=== PATIENT | female | born 2000 | race Caucasian/White ===

== ENCOUNTER 2024-10-06 18:17 | Emergency (ER) | payer MEDICARE, MEDICAID, SELFPAY ==
[2024-10-06] VITALS (47 sets, daily range): BP systolic 102–137; BP diastolic 62–94; PULSE 97–116; RESP 7–64; TEMP 36.6; O2SAT 92–99; BMI 25.0
[2024-10-06] MEDS: IPRAT-ALBUT 0.5-2.5 MG/3 ML NEB 1 NEB IH (18:17)
--- NOTE | 2024-10-06 18:27 | ED.GENADULT ---
HPI - General Adult General Chief complaint: Shortness of Breath/Dyspnea Stated complaint: difficulty breathing Time Seen by Provider: 10/06/24 18:18 History of Present Illness HPI narrative: This 23-year-old female comes in with a significant other because of shortness of breath. She is hyperventilating and has some stridorous breathing but seems to be moving air okay. She arrives with oximetry around 90-92% on room air. 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 She is typically on oxygen at 2-4 L per minute and states that she ran out of oxygen about a half an hour ago. She did have an IV dose of dexamethasone about a week ago that helped her for a while. She does appear rather anxious and is dramatic regarding her symptoms. There is no report of recent infection or fever. Related Data Home Medications ?Medication ?Instructions ?Recorded ?Confirmed aspirin 81 mg chewable tablet 81 mg PO DAILY 10/06/24 10/06/24 (Aspirin Childrens) digoxin 250 mcg (0.25 mg) tablet 250 mcg PO DAILY 10/06/24 10/06/24 escitalopram oxalate 20 mg tablet 20 mg PO DAILY 10/06/24 10/06/24 losartan 25 mg tablet 25 mg PO DAILY 10/06/24 10/06/24 Allergies Allergy/AdvReac Type Severity Reaction Status Date / Time amoxicillin Allergy Unknown Verified 10/06/24 18:34 cyclobenzaprine Allergy Unknown Verified 10/06/24 18:34 Review of Systems Status of ROS: Reports: 10 or more systems reviewed and unremarkable except as noted in History and below Narrative: Constitutional: No fevers, no weight gain or loss. Eyes: No discharge. No vision changes. HENT: No congestion, no sore throat, no ear pain. Cardiovascular: No chest pain, no palpitations. Respiratory: Shortness of breath as described above. Gastrointestinal: No abdominal pain, no vomiting, no diarrhea. Genitourinary: No dysuria, no hematuria. Musculoskeletal: Normal range of motion. Skin: No rashes, no pruritis. Neurological: No dizziness, weakness, sensory change, speech change. Endo/Heme/Allergies: No bruising or bleeding. No polydipsia. Pysch: no suicidality, no anxiety, no insomnia. All other systems reviewed and are negative. Exam Narrative: Exam Narrative: Constitutional: Well-developed, well-nourished, no acute distress. HEENT: Normocephalic, atraumatic. Neck: Normal range of motion. Nontender. Supple. Heart: Regular. No murmurs. Normal rate. Intact distal pulses. Lungs: Stridorous upper airway breathing that seems to be more self-induced. No chest discomfort. No wheezes, rhonchi, or rales. Tachypnea. Abdomen: Normal bowel sounds. Nontender. No rebound tenderness. Genitalia: Deferred. Back: No midline tenderness. Normal range of motion. Extremities: Normal range of motion. No injury. Skin: Intact. No rash. Warm. No erythema or pallor. Neurologic: No altered sensation. No weakness. Alert and oriented. Nursing notes and vitals signs are reviewed. Const: Vital Signs, click to edit/add: Vital Signs - 24 hr 10/06/24 18:21 10/06/24 18:23 10/06/24 18:27 Temperature 97.8 F Pulse Rate 116 H 116 H Pulse Rate [Left P ulse Oximeter] 113 H Respiratory Rate 64 H 40 H Blood Pressure 117/80 Blood Pressure [Le ft Upper Arm] 117/80 Pulse Oximetry 96 95 93 Oxygen Delivery Me thod Room Air Fraction of Inspir ed Oxygen 10/06/24 18:27 10/06/24 18:30 10/06/24 18:31 Temperature Pulse Rate 110 H 112 H 112 H Pulse Rate [Left P ulse Oximeter] Respiratory Rate 61 H 39 H 42 H Blood Pressure 123/76 129/82 Blood Pressure [Le ft Upper Arm] Pulse Oximetry 95 99 98 Oxygen Delivery Me thod CPAP CPAP Fraction of Inspir ed Oxygen 30 30 10/06/24 18:45 10/06/24 18:46 10/06/24 18:55 Temperature Pulse Rate 108 H 106 H Pulse Rate [Left P ulse Oximeter] Respiratory Rate 14 7 L Blood Pressure 121/80 Blood Pressure [Le ft Upper Arm] Pulse Oximetry 94 96 Oxygen Delivery Me thod CPAP CPAP Fraction of Inspir ed Oxygen 30 30 0.30 10/06/24 19:00 10/06/24 19:01 10/06/24 19:15 Temperature Pulse Rate 100 106 H 102 H Pulse Rate [Left P ulse Oximeter] Respiratory Rate 12 13 16 Blood Pressure 123/94 H Blood Pressure [Le ft Upper Arm] Pulse Oximetry 93 94 95 Oxygen Delivery Me thod CPAP CPAP CPAP Fraction of Inspir ed Oxygen 30 30 30 10/06/24 19:16 Temperature Pulse Rate 103 H Pulse Rate [Left P ulse Oximeter] Respiratory Rate 26 H Blood Pressure 104/75 Blood Pressure [Le ft Upper Arm] Pulse Oximetry 98 Oxygen Delivery Me thod CPAP Fraction of Inspir ed Oxygen 30 Course Vital Signs Vital signs: Initial Vital Signs Pulse Rate 116 H 10/06/24 18:21 Pulse Oximetry 96 10/06/24 18:21 Vital Signs Pulse Rate 116 H 10/06/24 18:21 Pulse Oximetry 96 10/06/24 18:21 Temperature 97.8 F 10/06/24 18:27 Pulse Rate 103 H 10/06/24 19:16 Respiratory Rate 26 H 10/06/24 19:16 Blood Pressure 104/75 10/06/24 19:16 Pulse Oximetry 98 10/06/24 19:16 Oxygen Delivery Method CPAP 10/06/24 19:16 Fraction of Inspired Oxygen 30 10/06/24 19:16 Medications Administered Medications: Discontinued Medications Generic Name Dose Route Start Last Admin Trade Name Freq PRN Reason Stop Dose Admin Albuterol/Ipratropium 1 neb 10/06/24 18:26 10/06/24 18:17 Iprat-Albut 0.5-2.5 Mg/3 Ml Neb IH 10/06/24 18:27 1 neb ONCE ONE Administration Dexamethasone 10 mg 10/06/24 18:26 10/06/24 18:35 Dexamethasone 4 Mg/Ml Vial IV 10/06/24 18:27 10 mg ONCE ONE Administration Lorazepam 0.5 mg 10/06/24 18:33 10/06/24 19:16 Lorazepam 0.5 Mg Tablet PO 10/06/24 18:34 0.5 mg ONCE ONE Administration Ondansetron HCl 4 mg 10/06/24 18:43 10/06/24 18:45 Ondansetron 2 Mg/Ml Inj IVP 10/06/24 18:44 4 mg ONCE ONE Administration Medical Decision Making MDM Narrative Medical decision making narrative: This patient comes in with hyperventilating and lots of anxiety regarding her breathing. It seems that her lung sounds are primarily coming from her neck and larynx. Her lungs actually sound rather clear and she is moving air okay otherwise. The patient did receive BiPAP initially along with an IV dose of dexamethasone 10 mg. She was maintaining sufficient oximetry prior to this with nasal cannula. She also received a DuoNeb prior to the BiPAP. She began to do much better rather quickly on BiPAP and was converted to CPAP which she normally uses at night. The patient did also receive an oral dose of Ativan 0.5 mg. She is doing much better and feels okay to return home. She states that she has an oxygen concentrator and will be able to be discharged with that resource available. Discharge Plan Discharge Clinical Impression: Asthma with acute exacerbation Patient Disposition: Home w/ Parent or Adult Condition: Improved Additional Instructions: Continue current plans. Follow up with primary physicians as needed or return if worsening. Prescriptions: No Action digoxin 250 mcg (0.25 mg) tablet 250 mcg PO DAILY losartan 25 mg tablet 25 mg PO DAILY escitalopram oxalate 20 mg tablet 20 mg PO DAILY aspirin [Aspirin Childrens] 81 mg tablet,chewable 81 mg PO DAILY Stand Alone Forms: [employer] Info Instructions
[2024-10-06] MEDS: ONDANSETRON 2 MG/ML inj 4 MG IVP (18:45)
[2024-10-06] MEDS: ALBUTEROL SULFATE 2.5 MG/3 ML VIAL.NEB NEB (20:50)
[2024-10-07] VITALS (44 sets, daily range): BP systolic 105; BP diastolic 65; PULSE 79–82; RESP 5–36; O2SAT 90–97
[2024-10-07] MEDS: TIZANIDINE HCL 4 MG TABLET 2 MG PO (01:10)
[2024-10-07] MEDS: ALBUTEROL SULFATE 2.5 MG/3 ML VIAL.NEB NEB (08:35)
--- NOTE | 2024-10-07 09:31 | ED.GENADULT ---
HPI - General Adult General Chief complaint: Shortness of Breath/Dyspnea Stated complaint: difficulty breathing Time Seen by Provider: 10/06/24 18:18 Related Data Home Medications ?Medication ?Instructions ?Recorded ?Confirmed aspirin 81 mg chewable tablet 81 mg PO DAILY 10/06/24 10/06/24 (Aspirin Childrens) digoxin 250 mcg (0.25 mg) tablet 250 mcg PO DAILY 10/06/24 10/06/24 escitalopram oxalate 20 mg tablet 20 mg PO DAILY 10/06/24 10/06/24 losartan 25 mg tablet 25 mg PO DAILY 10/06/24 10/06/24 Allergies Allergy/AdvReac Type Severity Reaction Status Date / Time amoxicillin Allergy Unknown Verified 10/07/24 01:09 cyclobenzaprine Allergy Unknown Verified 10/07/24 01:09 Review of Systems Status of ROS: Reports: 10 or more systems reviewed and unremarkable except as noted in History and below [facility] 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 EYES: No scleral icterus. LYMPH: No supraclavicular or cervical lymphadenopathy. SKIN: Visible skin seen during exam normal or with benign process only. EXT: No dependent lower extremity pedal edema. HEART: Regular rate and rhythm with no murmurs, rubs, or gallops. LUNGS: Clear to auscultation bilaterally with no crackles or wheezes. ABD: Soft, non tender, non distended. PSYCH: Good eye contact, speech is not pressured. Neurologic cranial nerves 2-12 grossly intact no focal defects. Const: Vital Signs, click to edit/add: Vital Signs - 24 hr 10/06/24 18:21 10/06/24 18:23 10/06/24 18:27 Temperature 97.8 F Pulse Rate 116 H 116 H Pulse Rate [Left P ulse Oximeter] 113 H Respiratory Rate 64 H 40 H Blood Pressure 117/80 Blood Pressure [Le ft Upper Arm] 117/80 Pulse Oximetry 96 95 93 Oxygen Delivery Me thod Room Air Oxygen Flow Rate Fraction of Inspir ed Oxygen 10/06/24 18:27 10/06/24 18:30 10/06/24 18:31 Temperature Pulse Rate 110 H 112 H 112 H Pulse Rate [Left P ulse Oximeter] Respiratory Rate 61 H 39 H 42 H Blood Pressure 123/76 129/82 Blood Pressure [Le ft Upper Arm] Pulse Oximetry 95 99 98 Oxygen Delivery Me thod BiPAP BiPAP Oxygen Flow Rate Fraction of Inspir ed Oxygen 30 30 10/06/24 18:45 10/06/24 18:46 10/06/24 18:55 Temperature Pulse Rate 108 H 106 H Pulse Rate [Left P ulse Oximeter] Respiratory Rate 14 7 L Blood Pressure 121/80 Blood Pressure [Le ft Upper Arm] Pulse Oximetry 94 96 Oxygen Delivery Me thod BiPAP BiPAP Oxygen Flow Rate Fraction of Inspir ed Oxygen 30 30 0.30 10/06/24 19:00 10/06/24 19:01 10/06/24 19:15 Temperature Pulse Rate 100 106 H 102 H Pulse Rate [Left P ulse Oximeter] Respiratory Rate 12 13 16 Blood Pressure 123/94 H Blood Pressure [Le ft Upper Arm] Pulse Oximetry 93 94 95 Oxygen Delivery Me thod BiPAP BiPAP BiPAP Oxygen Flow Rate Fraction of Inspir ed Oxygen 30 30 30 10/06/24 19:16 10/06/24 19:17 10/06/24 19:30 Temperature Pulse Rate 103 H 101 H 103 H Pulse Rate [Left P ulse Oximeter] Respiratory Rate 26 H 22 15 Blood Pressure 104/75 Blood Pressure [Le ft Upper Arm] Pulse Oximetry 98 96 94 Oxygen Delivery Me thod BiPAP CPAP CPAP Oxygen Flow Rate Fraction of Inspir ed Oxygen 30 30 30 10/06/24 19:31 10/06/24 19:32 10/06/24 19:45 Temperature Pulse Rate 106 H 104 H 104 H Pulse Rate [Left P ulse Oximeter] Respiratory Rate 11 L 14 15 Blood Pressure 112/81 Blood Pressure [Le ft Upper Arm] Pulse Oximetry 95 94 94 Oxygen Delivery Me thod CPAP CPAP CPAP Oxygen Flow Rate Fraction of Inspir ed Oxygen 30 30 30 10/06/24 19:46 10/06/24 20:00 10/06/24 20:01 Temperature Pulse Rate 106 H 102 H 103 H Pulse Rate [Left P ulse Oximeter] Respiratory Rate 12 20 21 Blood Pressure 116/83 110/86 Blood Pressure [Le ft Upper Arm] Pulse Oximetry 94 96 97 Oxygen Delivery Me thod CPAP CPAP CPAP Oxygen Flow Rate Fraction of Inspir ed Oxygen 30 30 30 10/06/24 20:15 10/06/24 20:16 10/06/24 20:30 Temperature Pulse Rate 97 101 H 102 H Pulse Rate [Left P ulse Oximeter] Respiratory Rate 13 Blood Pressure 115/73 Blood Pressure [Le ft Upper Arm] Pulse Oximetry 96 96 97 Oxygen Delivery Me thod CPAP CPAP CPAP Oxygen Flow Rate Fraction of Inspir ed Oxygen 30 30 30 10/06/24 20:31 10/06/24 20:45 10/06/24 20:47 Temperature Pulse Rate 104 H 110 H 111 H Pulse Rate [Left P ulse Oximeter] Respiratory Rate 18 35 H 23 Blood Pressure 137/83 115/89 Blood Pressure [Le ft Upper Arm] Pulse Oximetry 97 94 95 Oxygen Delivery Me thod CPAP CPAP CPAP Oxygen Flow Rate Fraction of Inspir ed Oxygen 30 30 30 10/06/24 21:00 10/06/24 21:01 10/06/24 21:02 Temperature Pulse Rate 106 H 105 H 102 H Pulse Rate [Left P ulse Oximeter] Respiratory Rate 28 H 10 L 23 Blood Pressure 117/66 Blood Pressure [Le ft Upper Arm] Pulse Oximetry 95 94 94 Oxygen Delivery Me thod CPAP CPAP CPAP Oxygen Flow Rate Fraction of Inspir ed Oxygen 30 30 30 10/06/24 21:15 10/06/24 21:16 10/06/24 21:17 Temperature Pulse Rate 113 H 111 H 109 H Pulse Rate [Left P ulse Oximeter] Respiratory Rate 17 18 10 L Blood Pressure 108/72 Blood Pressure [Le ft Upper Arm] Pulse Oximetry 96 96 95 Oxygen Delivery Me thod CPAP CPAP CPAP Oxygen Flow Rate 30 Fraction of Inspir ed Oxygen 30 30 10/06/24 21:30 10/06/24 21:31 10/06/24 21:45 Temperature Pulse Rate 104 H 97 102 H Pulse Rate [Left P ulse Oximeter] Respiratory Rate 11 L 8 L 27 H Blood Pressure 111/74 Blood Pressure [Le ft Upper Arm] Pulse Oximetry 95 95 96 Oxygen Delivery Me thod CPAP CPAP CPAP Oxygen Flow Rate 30 30 30 Fraction of Inspir ed Oxygen 10/06/24 21:46 10/06/24 22:00 10/06/24 22:01 Temperature Pulse Rate 100 98 104 H Pulse Rate [Left P ulse Oximeter] Respiratory Rate 14 10 L 10 L Blood Pressure 124/82 122/74 Blood Pressure [Le ft Upper Arm] Pulse Oximetry 95 92 94 Oxygen Delivery Me thod CPAP CPAP CPAP Oxygen Flow Rate 30 30 30 Fraction of Inspir ed Oxygen 10/06/24 22:15 10/06/24 22:16 10/06/24 22:30 Temperature Pulse Rate 99 103 H 101 H Pulse Rate [Left P ulse Oximeter] Respiratory Rate 17 22 11 L Blood Pressure 102/62 Blood Pressure [Le ft Upper Arm] Pulse Oximetry 95 97 96 Oxygen Delivery Me thod CPAP CPAP CPAP Oxygen Flow Rate 30 30 30 Fraction of Inspir ed Oxygen 10/06/24 22:31 10/06/24 23:20 10/06/24 23:30 Temperature Pulse Rate 100 Pulse Rate [Left P ulse Oximeter] Respiratory Rate 9 L 9 L Blood Pressure 117/81 Blood Pressure [Le ft Upper Arm] Pulse Oximetry 96 95 97 Oxygen Delivery Me thod CPAP Oxygen Flow Rate 30 Fraction of Inspir ed Oxygen 10/06/24 23:31 10/06/24 23:40 10/06/24 23:46 Temperature Pulse Rate Pulse Rate [Left P ulse Oximeter] Respiratory Rate 10 L 13 21 Blood Pressure Blood Pressure [Le ft Upper Arm] Pulse Oximetry 95 96 95 Oxygen Delivery Me thod Oxygen Flow Rate Fraction of Inspir ed Oxygen 10/06/24 23:50 10/07/24 00:00 10/07/24 00:01 Temperature Pulse Rate Pulse Rate [Left P ulse Oximeter] Respiratory Rate 26 H 6 L 20 Blood Pressure Blood Pressure [Le ft Upper Arm] Pulse Oximetry 96 95 96 Oxygen Delivery Me thod Oxygen Flow Rate Fraction of Inspir ed Oxygen 10/07/24 00:01 10/07/24 00:01 10/07/24 00:10 Temperature Pulse Rate Pulse Rate [Left P ulse Oximeter] Respiratory Rate 20 20 17 Blood Pressure Blood Pressure [Le ft Upper Arm] Pulse Oximetry 96 96 94 Oxygen Delivery Me thod Oxygen Flow Rate Fraction of Inspir ed Oxygen 10/07/24 00:16 10/07/24 00:20 10/07/24 00:30 Temperature Pulse Rate Pulse Rate [Left P ulse Oximeter] Respiratory Rate 5 L 9 L 18 Blood Pressure Blood Pressure [Le ft Upper Arm] Pulse Oximetry 94 94 94 Oxygen Delivery Me thod Oxygen Flow Rate Fraction of Inspir ed Oxygen 10/07/24 00:31 10/07/24 00:40 10/07/24 00:46 Temperature Pulse Rate Pulse Rate [Left P ulse Oximeter] Respiratory Rate 36 H 18 18 Blood Pressure Blood Pressure [Le ft Upper Arm] Pulse Oximetry 95 94 94 Oxygen Delivery Me thod Oxygen Flow Rate Fraction of Inspir ed Oxygen 10/07/24 00:50 10/07/24 01:00 10/07/24 01:01 Temperature Pulse Rate Pulse Rate [Left P ulse Oximeter] Respiratory Rate 25 H 11 L 11 L Blood Pressure Blood Pressure [Le ft Upper Arm] Pulse Oximetry 94 94 93 Oxygen Delivery Me thod Oxygen Flow Rate Fraction of Inspir ed Oxygen 10/07/24 01:12 10/07/24 01:19 10/07/24 01:20 Temperature Pulse Rate Pulse Rate [Left P ulse Oximeter] Respiratory Rate 9 L 20 24 Blood Pressure Blood Pressure [Le ft Upper Arm] Pulse Oximetry 93 93 94 Oxygen Delivery Me thod Oxygen Flow Rate Fraction of Inspir ed Oxygen 10/07/24 01:30 10/07/24 01:33 10/07/24 01:40 Temperature Pulse Rate Pulse Rate [Left P ulse Oximeter] Respiratory Rate 10 L 10 L 7 L Blood Pressure Blood Pressure [Le ft Upper Arm] Pulse Oximetry 95 94 93 Oxygen Delivery Me thod Oxygen Flow Rate Fraction of Inspir ed Oxygen 10/07/24 01:49 10/07/24 01:50 10/07/24 02:00 Temperature Pulse Rate Pulse Rate [Left P ulse Oximeter] Respiratory Rate 6 L 16 19 Blood Pressure Blood Pressure [Le ft Upper Arm] Pulse Oximetry 93 93 93 Oxygen Delivery Me thod Oxygen Flow Rate Fraction of Inspir ed Oxygen 10/07/24 02:04 10/07/24 02:10 10/07/24 02:20 Temperature Pulse Rate Pulse Rate [Left P ulse Oximeter] Respiratory Rate 19 17 18 Blood Pressure Blood Pressure [Le ft Upper Arm] Pulse Oximetry 93 93 94 Oxygen Delivery Me thod Oxygen Flow Rate Fraction of Inspir ed Oxygen 10/07/24 02:30 10/07/24 02:40 10/07/24 02:50 Temperature Pulse Rate Pulse Rate [Left P ulse Oximeter] Respiratory Rate 19 16 17 Blood Pressure Blood Pressure [Le ft Upper Arm] Pulse Oximetry 93 93 96 Oxygen Delivery Me thod Oxygen Flow Rate Fraction of Inspir ed Oxygen 10/07/24 03:00 10/07/24 03:10 10/07/24 03:20 Temperature Pulse Rate Pulse Rate [Left P ulse Oximeter] Respiratory Rate 18 18 19 Blood Pressure Blood Pressure [Le ft Upper Arm] Pulse Oximetry 93 90 94 Oxygen Delivery Me thod Oxygen Flow Rate Fraction of Inspir ed Oxygen 10/07/24 03:30 10/07/24 03:40 10/07/24 03:50 Temperature Pulse Rate Pulse Rate [Left P ulse Oximeter] Respiratory Rate 18 19 18 Blood Pressure Blood Pressure [Le ft Upper Arm] Pulse Oximetry 95 96 96 Oxygen Delivery Me thod Oxygen Flow Rate Fraction of Inspir ed Oxygen 10/07/24 04:00 10/07/24 04:10 10/07/24 04:20 Temperature Pulse Rate Pulse Rate [Left P ulse Oximeter] Respiratory Rate 30 H 17 13 Blood Pressure Blood Pressure [Le ft Upper Arm] Pulse Oximetry 97 96 97 Oxygen Delivery Me thod Oxygen Flow Rate Fraction of Inspir ed Oxygen 10/07/24 04:30 10/07/24 04:40 10/07/24 04:50 Temperature Pulse Rate Pulse Rate [Left P ulse Oximeter] Respiratory Rate 12 18 18 Blood Pressure Blood Pressure [Le ft Upper Arm] Pulse Oximetry 97 96 96 Oxygen Delivery Me thod Oxygen Flow Rate Fraction of Inspir ed Oxygen 10/07/24 05:00 10/07/24 05:10 10/07/24 05:20 Temperature Pulse Rate Pulse Rate [Left P ulse Oximeter] Respiratory Rate 14 19 15 Blood Pressure Blood Pressure [Le ft Upper Arm] Pulse Oximetry 95 95 95 Oxygen Delivery Me thod Oxygen Flow Rate Fraction of Inspir ed Oxygen 10/07/24 07:30 10/07/24 08:25 Temperature Pulse Rate Pulse Rate [Left P ulse Oximeter] 79 82 Respiratory Rate 16 16 Blood Pressure Blood Pressure [Le ft Upper Arm] 105/65 Pulse Oximetry 97 94 Oxygen Delivery Me thod CPAP CPAP Oxygen Flow Rate Fraction of Inspir ed Oxygen Course Course ED Course: Patient seen and examined. EKG is completely normal upon my review. Troponin D-dimer CT of the head chest x-ray CBC comprehensive metabolic panel pending. Vital Signs Vital signs: Initial Vital Signs Pulse Rate 116 H 10/06/24 18:21 Pulse Oximetry 96 10/06/24 18:21 Vital Signs Pulse Rate 116 H 10/06/24 18:21 Pulse Oximetry 96 10/06/24 18:21 Temperature 97.8 F 10/06/24 18:27 Pulse Rate 82 10/07/24 08:25 Respiratory Rate 16 10/07/24 08:25 Blood Pressure 105/65 10/07/24 08:25 Pulse Oximetry 94 10/07/24 08:25 Oxygen Delivery Method CPAP 10/07/24 08:25 Oxygen Flow Rate 30 10/06/24 22:31 Fraction of Inspired Oxygen 30 10/06/24 21:16 Medications Administered Medications: Generic Name Dose Route Start Last Admin Trade Name Freq PRN Reason Stop Dose Admin Albuterol 2.5 mg 10/06/24 20:54 10/07/24 08:35 Albuterol Sulfate 2.5 Mg/3 Ml Vial.Neb NEB 2.5 mg Q4H PRN Administration Discontinued Medications Generic Name Dose Route Start Last Admin Trade Name Freq PRN Reason Stop Dose Admin Albuterol/Ipratropium 1 neb 10/06/24 18:26 10/06/24 18:17 Iprat-Albut 0.5-2.5 Mg/3 Ml Neb IH 10/06/24 18:27 1 neb ONCE ONE Administration Dexamethasone 10 mg 10/06/24 18:26 10/06/24 18:35 Dexamethasone 4 Mg/Ml Vial IV 10/06/24 18:27 10 mg ONCE ONE Administration Lorazepam 0.5 mg 10/06/24 18:33 10/06/24 19:16 Lorazepam 0.5 Mg Tablet PO 10/06/24 18:34 0.5 mg ONCE ONE Administration Ondansetron HCl 4 mg 10/06/24 18:43 10/06/24 18:45 Ondansetron 2 Mg/Ml Inj IVP 10/06/24 18:44 4 mg ONCE ONE Administration Tizanidine HCl 2 mg 10/07/24 00:46 10/07/24 01:10 Tizanidine Hcl 4 Mg Tablet PO 10/07/24 00:47 2 mg ONCE ONE Administration Discharge Plan Discharge Clinical Impression: Asthma with acute exacerbation Patient Disposition: Home w/ Parent or Adult Condition: Improved Additional Instructions: Continue current plans. Follow up with primary physicians as needed or return if worsening. Activity Level: No Restrictions Discharge Diet: Regular Prescriptions: No Action digoxin 250 mcg (0.25 mg) tablet 250 mcg PO DAILY losartan 25 mg tablet 25 mg PO DAILY escitalopram oxalate 20 mg tablet 20 mg PO DAILY aspirin [Aspirin Childrens] 81 mg tablet,chewable 81 mg PO DAILY Stand Alone Forms: [employer] Info Instructions
== END 2024-10-07 09:57 | disposition home or self-care (01) ==
PROVIDERS: Emergency Provider Internal Medicine
DX: J45.901 Unspecified asthma with (acute) exacerbation (principal)
CPT/HCPCS: 94640; 94660; 94761; 96374; 99284; 99291; A9270; J1100; J2405

== ENCOUNTER 2024-10-07 09:20 | Outpatient (CLI) | payer MEDICARE, MEDICAID, SELFPAY | END 2024-10-07 09:21 | disposition home or self-care (01) | LOC: AMB 10-09 09:24 | PROVIDERS: Visit Provider Internal Medicine | DX: R06.09 Other forms of dyspnea (principal); R11.2 Nausea with vomiting, unspecified; R10.9 Unspecified abdominal pain | CPT/HCPCS: A0425; A0434 ==